=== PATIENT | female | born 1940 | race Caucasian/White ===

== ENCOUNTER → 2024-04-28 10:46 | Outpatient (REF) | payer MEDICARE, SELFPAY | LOC: HWRAD 10:46 | PROVIDERS: ATTENDING PHYSICIAN Student in an Organized Health Care Education/Training Program | DX: R19.4 Change in bowel habit (principal) | CPT/HCPCS: 74019 ==

== ENCOUNTER → 2024-10-19 13:18 | Outpatient (REF) | payer MEDICARE, SELFPAY | LOC: RCS 13:18 | PROVIDERS: ATTENDING PHYSICIAN Hospitalist | DX: R60.0 Localized edema (principal) | CPT/HCPCS: 93306 ==

== ENCOUNTER → 2024-10-20 10:58 | Outpatient (REF) | payer MEDICARE, SELFPAY | LOC: RAD 10:58 | PROVIDERS: ATTENDING PHYSICIAN Hospitalist | DX: R41.3 Other amnesia (principal) | CPT/HCPCS: 70470; Q9967 ==

== ENCOUNTER 2024-11-07 14:36 | Emergency (ER) | payer MEDICARE, SELFPAY ==
[2024-11-07 14:38] VITALS: BP 99/76
--- NOTE | 2024-11-07 15:30 | ED.GENMED ---
History of Present Illness
General
Chief Complaint: Fall
Time Seen by Provider: 11/07/24 15:29
History of Present Illness
History of Present Illness:
FOCUSED PAST MEDICAL HISTORY
- High blood pressure, hyperlipidemia
REVIEW OF OLD RECORDS
- The patient did have a CAT scan of the brain 10/20/2024 which showed no acute abnormality
Note:
CHIEF COMPLAINT(S)
Head injury due to a fall
HISTORY OF PRESENT ILLNESS
The patient is an 83-year-old female who presented with a head injury sustained at a gastrointestinal (GI) medical office. She reported that while using a walker, she lost balance and fell backwards, striking the side of her head on a hard
partition. The patient described the impact as significant, citing the loud noise from the impact. There was no loss of consciousness reported.
Currently, the patient denies neck pain and has full range of motion without discomfort. Neurological examination revealed no focal deficits, and the patient denies any numbness or tingling in her extremities. She expresses no current nausea, though
she had experienced it transiently, which has since resolved without intervention. There is no pain upon abdominal palpation, and no current extremity pain or injuries were noted.
PAST MEDICAL AND SURGICAL HISTORY
The patient mentioned a history of knee issues for which she uses a walker. There is a suggestion of pending orthopedic plans for hip or knee replacement as part of her ongoing medical treatment.
IMMUNIZATION HISTORY
The patient is unsure of her tetanus immunization status in the past five to ten years.
PHYSICAL EXAM
- General: Well appearing in no distress
- Head: No clear evidence of craniofacial trauma
- C-spine: No midline c-spine tenderness; normal AROM of C-spine
- Back: Normal AROM thoracolumbar spine
- HEENT: Moist oral mucosa, no blood
- Cardiovascular: No chest wall tenderness
- Pulmonary: No respiratory distress
- Abdomen: Soft with no peritoneal signs, no tenderness
- Neurologic: Very good strength all extremities, no coordination deficits
- Psychiatric: Appropriate mental status, normal insight and judgement
- Extremities: Nontender, no edema, moves all extremities equally, very good active range of motion in all extremities including the left elbow
- Skin: There is a abrasion/skin tear of the skin overlying the left olecranon
PLAN
1. Order a computed tomography (CT) scan of the brain to rule out any serious intracranial injuries given the patients age and mechanism of injury.
2. Administer a tetanus toxoid booster, as the patient is unsure of her immunization status.
3. Monitor for further neurological symptoms or worsening nausea.
4. Possible need for hip or knee replacement to be addressed separately as part of ongoing care.
DIFFERENTIAL DIAGNOSIS
The Differential Diagnosis includes, in no particular order and is not limited to:
1. Subdural hematoma
2. Concussion
3. Skull fracture
4. Subarachnoid hemorrhage
5. Brain contusion
6. Syncope secondary to transient ischemic attack
7. Orthostatic hypotension leading to fall
8. Benign positional vertigo
9. Post-fall anxiety
10. Soft tissue hematoma
RADIOLOGY
- Given patient's age, CT head obtained which shows no acute abnormality
SUMMARY OF ENCOUNTER
The patient, an 83-year-old female, presented to the emergency department with a head injury sustained from a fall at a medical office. Upon evaluation, there was no evidence of loss of consciousness or significant neurological deficits. The patient
underwent a CT scan of the brain, which showed no signs of bleeding or other acute intracranial injury. The initial concern was for possible intracranial bleeding due to the nature of the injury and the patients age; however, the CT results were
reassuring and ruled out immediate life-threatening conditions.
DISPOSITION
Discharge
ASSESSMENT
The patient experienced a significant impact to the head following a fall but has no acute intracranial pathology as per CT findings.
PLAN
The patient is to be discharged with instructions to monitor for any new or worsening neurological symptoms and to seek immediate medical attention if they occur. The absence of bleeding on the CT scan significantly reduces the risk of delayed
intracranial hemorrhage, but vigilance for any changes is advised.
INDEPENDENT REVIEW OF LABS AND INTERPRETATION OF TESTS
My independent interpretation of the CT scan of the brain is that there are no signs of bleeding or acute intracranial injury.
PATIENT EDUCATION AND COUNSELING
The patient was educated on the signs and symptoms to watch for, such as altered consciousness, severe headache, nausea, or vomiting, as these could indicate a delayed onset of complications. It was emphasized that while delayed bleeding is
unlikely, it is important to remain attentive to any changes in her condition.
FOLLOW-UP INSTRUCTIONS
The patient was advised to contact her primary care physician immediately to schedule a follow-up visit if any concerning symptoms occur.
MEDICATION RECONCILIATION
A tetanus toxoid booster was administered as the patient was unsure of her immunization status.
MEDICAL DECISION MAKING
-Complexity of Data Reviewed: Chronic conditions affecting care include history of knee issues. Differential diagnosis considered included subdural hematoma, concussion, skull fracture, subarachnoid hemorrhage, brain contusion, syncope secondary to
transient ischemic attack, orthostatic hypotension leading to fall, benign positional vertigo, post-fall anxiety, and soft tissue hematoma.
-Data:
Category 1
My independent interpretation of the CT scan of the brain indicated no acute findings warranting further intervention.
-Risk: Consideration of Admission/Observation: Escalation of care including admission/observation was considered given the complexity and risk of the patients presenting complaint, exam findings, and/or their underlying comorbidities. However,
ultimately, I feel the patient is safe for outpatient management with close follow-up. Reasoning: Work-up reassuring, does not reveal any acute life/organ-threatening processes, patients symptoms well controlled upon reevaluation, reexamination is
reassuring, vitals are stable, patient agreeable with discharge, reliable for follow-up.
DIAGNOSIS
Minor head injury
Phy Exam
Physical Exam
Physical Exam:
See HPI
Course
Orders/Labs/Results
Orders:
Orders
11/07/24 14:43
CT Head W/o Iv Contrast Urgent
Comment:
Reason For Exam: trauma
11/07/24 15:36
Tetanus/Diphth/Acelpertussis [Adacel] 0.5 ml IM .ONCE ONE
Vital Signs
Initial and Last Documented VS:
Initial Vital Signs
Temp Pulse Resp BP Pulse Ox
37.0 C 68 16 99/76 98
11/07/24 14:38 11/07/24 14:38 11/07/24 14:38 11/07/24 14:38 11/07/24 14:38
Last Documented Vital Signs
Temp Pulse Resp BP Pulse Ox
37.0 C 68 16 184/75 98
11/07/24 14:38 11/07/24 14:38 11/07/24 14:38 11/07/24 16:00 11/07/24 16:00
*Pulse Oximetry
SaO2: 98
Oxygen Mode of Delivery: Room air
Patient hypoxic: no
*Critical Care Note
Total Time (30-74mins, 75-104mins- exclusive of procedures): Not Applicable
ED Attending Note
-
Portions of this chart may have been created with voice recognition software.� Occasional wrong word or��sound alike� substitutions may have occurred due to the inherent limitations of voice recognition software.
Discharge Plan
Departure
Patient Disposition: Home (Routine Discharge)
Date of Disposition: 11/07/24
Time of Disposition: 16:55
Patient with high blood pressure during this ER visit?: Yes
Discharge Problem:
Head injury
Instructions: Head Injury in Adults (DC), BLOOD PRESSURE
Referrals:
Jacinta Serna MD [Family Provider, Internal Medicine]
Activity Restrictions/Additional Instructions:
The CAT scan of your brain shows no acute abnormality including no bleeding of the brain. Return here if worse or other concerns.
Discharge Date and Time
Print Language: [id number]
[2024-11-07] MEDS: ADACEL 0.5 ML IM (15:57)
[2024-11-07 16:00] VITALS: BP 184/75
[2024-11-07 17:40] VITALS: BP 155/79
== END 2024-11-07 17:53 | disposition home or self-care (01) ==
LOC: EMR 14:36
PROVIDERS: EMERGENCY PHYSICIAN Emergency Medicine; FAMILY PHYSICIAN Hospitalist
DX: S09.90XA Unspecified injury of head, initial encounter (principal); W01.10XA Fall on same level from slipping, tripping and stumbling with subsequent striking against unspecified object, initial encounter; I10 Essential (primary) hypertension; E78.5 Hyperlipidemia, unspecified; Z23 Encounter for immunization
CPT/HCPCS: 90471; 99284; 70450; 90715

== ENCOUNTER → 2025-01-19 11:17 | Outpatient (REF) | payer MEDICARE, SELFPAY | LOC: HWRCS 11:17 | PROVIDERS: ATTENDING PHYSICIAN Internal Medicine Cardiovascular Disease; FAMILY PHYSICIAN Hospitalist | DX: R06.02 Shortness of breath (principal) | CPT/HCPCS: 78452; 93017; A9500; J2785 ==